=== PATIENT | male | born 1975 | race Two or more races ===

== ENCOUNTER → 2024-10-31 | Outpatient (CLI) | payer BC, SELFPAY ==
--- NOTE | 2024-10-31 | XR_ITS ---
Examination: Foot, left, 3 views Technique: AP, oblique, lateral views foot, 3 views Date and time of exam: October 31, 2024 0721 hours INDICATIONS: Left foot pain beginning one week ago FINDINGS: Moderate narrowing first metatarsophalangeal joint Minimal bunion deformity No fracture 3 mm posterior bony calcaneal spur IMPRESSION: Minimal bunion deformity Moderate narrowing first metatarsophalangeal joint
[2024-10-31 08:57] LABS: Glucose Estimated Average 103 mg/dL (80-131); Hemoglobin A1C 5.2 % Hgb (4.8-6.0)
[2024-10-31 08:59] LABS: Basophils # (Auto) 0.1 Thou/mm3 (0.0-0.2); Basophils % (Auto) 1 % (0-2.5); Eosinophils # (Auto) 0.3 Thou/mm3 (0.0-0.5); Eosinophils % (Auto) 5 % (0-10); Hematocrit 51.2 % (41.0-53.0); Hemoglobin 17.4 g/dL (13.5-16.0); Immature Granulocytes % (Auto) 1 % (0-0); Immature Granulocytes Auto 0.03 Thou/mm3 (0.00-0.00); Lymphocytes % (Auto) 31 % (10-50); Mean Corpuscular Hemoglobin 30.9 pg (25.0-35.0); Mean Corpuscular Volume 91 fL (80-100); Monocytes # (Auto) 0.5 Thou/mm3 (0.0-0.8); Monocytes % (Auto) 8 % (0-12); Neutrophils # (Auto) 3.6 Thou/mm3 (1.8-7.7); Neutrophils % (Auto) 55 % (37-80); Nucleated Red Blood Cell % 0 /100 WBC (0); Platelet Count 261 Thou/mm3 (140-440); RDW Standard Deviation 47.8 fL (35.1-43.9); Red Blood Count 5.64 Miln/mm3 (4.50-5.90); White Blood Count 6.5 Thou/mm3 (3.8-10.6)
[2024-10-31 09:07] LABS: D-Dimer < 250 ng/mL (<600)
[2024-10-31 09:13] LABS: B-Type Natriuretic Peptide < 20 pg/mL (0-100); Ferritin 83 ng/mL (10.5-307.3); T4 (Thyroxine) 5.6 mcg/dL (4.5-10.9); Vitamin D 25 Hydroxy Total 25.2 ng/mL (7.3-40.2)
[2024-10-31 09:14] LABS: Sed Rate (ESR) 4 mm/hr (0-20)
[2024-10-31 09:20] LABS: Alanine Aminotransferase 27 U/L (10-49); Albumin, Serum 4.2 gm/dL (3.5-5.0); Albumin/Globulin Ratio 1.4 (1.2-2.2); Alkaline Phosphatase 63 U/L (46-116); Anion Gap 8 (7-16); Aspartate Amino Transferase 22 U/L (0-34); BUN/Creatinine Ratio 8 Ratio (12-20); Bilirubin,Total 1.2 mg/dL (0.3-1.2); Blood Urea Nitrogen 9 mg/dL (9-23); C-Reactive Protein < 0.5 mg/dL (0.0-0.9); Carbon Dioxide 29.8 mMol/L (20.0-31.0); Chloride 105 mMol/L (98-107); Cholesterol 231 mg/dL (132-200); Creatinine (Component) 1.2 mg/dL (0.6-1.3); Globulin 2.9 gm/dL (2.3-3.5); Glucose 101 mg/dL (74-106); HDL Cholesterol 58 mg/dL (40-60); LDL Cholesterol,Calculated 150 mg/dL (0-130); Osmolality,Calculated 283 (275-295); Potassium 4.4 mMol/L (3.4-5.1); Sodium 143 mMol/L (136-145); Thyroid Stimulating Hormone 0.76 uIU/mL (0.55-4.78); Total Protein 7.1 gm/dL (5.7-8.2); Triglycerides 113 mg/dL (30-150); Uric Acid 6.3 mg/dL (3.7-9.2); eGFR > 60 See Note
[2024-10-31 15:48] LABS: RA Screen Negative (Negative)
[2024-11-07 06:39] LABS: ANA Screen, IFA NEGATIVE (NEGATIVE); DHEA Sulfate* 109 mcg/dL (38-313); Sex Hormone Binding Globulin* 34 nmol/L (10-50); Testosterone, Total, Dialysis 1014 ng/dL (250-1100); Thyroid Peroxidase Antibodies* <1 IU/mL (<9)
== END | disposition home or self-care (01) ==
LOC: COPL 06:53
PROVIDERS: PCP Family Medicine; Referring Provider Nurse Practitioner Family; Visit Provider Radiology Diagnostic Radiology
DX: M21.612 Bunion of left foot (principal); M25.872 Other specified joint disorders, left ankle and foot; M79.672 Pain in left foot; D89.9 Disorder involving the immune mechanism, unspecified; Z86.39 Personal history of other endocrine, nutritional and metabolic disease; R53.83 Other fatigue; E55.9 Vitamin D deficiency, unspecified; Z82.49 Family history of ischemic heart disease and other diseases of the circulatory system
CPT/HCPCS: 36415; 73630; 80053; 80061; 82306; 82627; 82728; 83036; 83880; 84270; 84402; 84403; 84436; 84443; 84550; 85025; 85379; 85652; 86038; 86140; 86376; 86430

== ENCOUNTER → 2024-12-18 | Outpatient (CLI) | payer OTHER, SELFPAY ==
--- NOTE | 2024-12-18 16:20 | XR_ITS ---
Examination: Fingers, left hand third digit 3 views Technique: AP, oblique, lateral views left hand third digit Date and time: December 18, 2024 1622 hours INDICATIONS: Crushing injury to the third digit today, third digit pain. FINDINGS: Soft tissue swelling about the distal phalanx third digit Suspicious for nondisplaced fracture of ungual tuft tip distal phalanx third digit No opaque foreign body. IMPRESSION: Suspicious for nondisplaced fracture ungual tuft tip distal phalanx third digit.
== END | disposition home or self-care (01) ==
LOC: CDIM 16:16
PROVIDERS: Referring Provider Nurse Practitioner Family; Visit Provider Nurse Practitioner Family
DX: S62.633A Displaced fracture of distal phalanx of left middle finger, initial encounter for closed fracture (principal); X58.XXXA Exposure to other specified factors, initial encounter
CPT/HCPCS: 73140